=== PATIENT | male | born 1965 | race Asian ===

== ENCOUNTER 2016-07-14 13:07 | Emergency (ER) | payer OTHER ==
[~2016-07-14] VITALS: Ht 185.4 cm; Wt 131.1 kg
[2016-07-14] MEDS ORDERED: WARF5TAB6 PO (13:31)
== END 2016-07-14 16:42 | disposition home or self-care (01) ==
LOC: ED 13:07
DX: L03.012 Cellulitis of left finger (principal)
CPT/HCPCS: 99283